=== PATIENT | male | born 2000 | race Caucasian/White ===

== ENCOUNTER 2020-04-05 09:59 | Emergency (ER) | payer OTHER ==
[~2020-04-05] VITALS: Ht 170.2 cm; Wt 63.6 kg
[2020-04-05 10:11] VITALS: BP 149/73; TEMP 98.3
[2020-04-05 11:07] VITALS: PULSE 90
== END 2020-04-05 11:07 | disposition home or self-care (01) ==
LOC: COL.ER 09:59
DX: S92.351A Displaced fracture of fifth metatarsal bone, right foot, initial encounter for closed fracture (principal); V00.131A Fall from skateboard, initial encounter; X50.1XXA Overexertion from prolonged static or awkward postures, initial encounter; Y92.410 Unspecified street and highway as the place of occurrence of the external cause
CPT/HCPCS: Q4045

== ENCOUNTER 2022-05-18 13:52 | Emergency (ER) | payer OTHER ==
[~2022-05-18] VITALS: Ht 170.2 cm; Wt 72.7 kg
[2022-05-18 13:58] VITALS: BP 133/80
[2022-05-18 14:17] VITALS: PULSE 58; TEMP 97.5
== END 2022-05-18 14:17 | disposition home or self-care (01) ==
LOC: COL.ER 13:52
DX: R22.31 Localized swelling, mass and lump, right upper limb (principal); Z28.311 Partially vaccinated for COVID-19